=== PATIENT | female | born 1945 | race Two or more races ===

== ENCOUNTER 2025-04-29 13:17 | Emergency (ER) | payer OTHER ==
[~2025-04-29] VITALS: Ht 162.6 cm; Wt 49.0 kg
[2025-04-29 13:47] VITALS: BP 153/71; O2SAT 97
[2025-04-29] MEDS ORDERED: METHYLPREDNISOLONE SOD SUCC 125 MG VIAL ONE (15:41)
[2025-04-29] MEDS ORDERED: IPRATROPIUM BROMIDE 0.5 MG/2.5 ML AMPUL.NEB IH SCH (15:45)
[2025-04-29] MEDS ORDERED: BUDESONIDE 0.5 MG/2 ML AMPUL.NEB IH ONE ×2 (15:45→18:48)
[2025-04-29] MEDS ORDERED: METHYLPREDNISOLONE SOD SUCC 125 MG VIAL IV ONE (15:45)
[2025-04-29 16:03] LABS: BASO % 0.1 % (0.1-1.2); EOS # 0.28 (0.04-0.54); EOS % 1.8 % (0.7-7.0); LYMPH # 2.61 (1.18-3.74); LYMPH % 17.2 % (19.3-53.1); MEAN PLATELET VOLUME 9.90 fl (9.4-12.4); MONO # 1.26 (0.24-0.82); MONO % 8.3 % (4.7-12.5); NEUT # 10.97 (1.56-6.13); NEUT % 72.3 % (34.0-71.1); RED CELL DISTRIBUTION WIDTH 16.1 % (11.6-14.4)
[2025-04-29 16:24] LABS: BUN CREA RATIO 20.0 (7.0-25.0); CREATININE SERUM 0.89 mg/dL (0.55-1.02); GFR 61.18; GLUCOSE FASTING 121.0 mg/dL (65-100); OSMOLALITY SERUM 284.0 MOSM/KG (275-295)
[2025-04-29] MEDS ORDERED: LEVALBUTEROL HCL 1.25 MG/3 ML SOLUTION IH ONE (16:43)
[2025-04-29] MEDS ORDERED: IPRATROPIUM BROMIDE 0.5 MG/2.5 ML AMPUL.NEB IH ONE (16:43)
[2025-04-29 17:35] LABS: COVID-19 AG NEGATIVE (NEGATIVE)
[2025-04-29] MEDS ORDERED: IPRATROPIU0.2 MG/1 M IH (17:53)
[2025-04-29] MEDS ORDERED: ZITHROMAX500 MG PO (17:53)
[2025-04-29] MEDS ORDERED: PREDNISOLO15 MG/5 ML PO (17:53)
== END 2025-04-29 19:35 | disposition home or self-care (01) ==
LOC: ER 13:18
PROVIDERS: Behavior Technician
DX: J45.41 Moderate persistent asthma with (acute) exacerbation (principal); J04.0 Acute laryngitis; Z20.822 Contact with and (suspected) exposure to COVID-19